=== PATIENT | female | born 1985 | race Two or more races ===

== ENCOUNTER 2017-04-17 10:54 | Emergency (ER) | payer OTHER ==
[2017-04-17 11:06] VITALS: TEMP 97.9
[2017-04-17] MEDS ORDERED: PROPARACAINE 0.5% 15 ML OPHT DROP ONE (11:13)
--- NOTE | 2017-04-17 11:24 | EDPHY ---
H & P Stated Complaint: PRESLEY with left facial involement for 4 day Time Seen by Provider: 04/17/17 11:00 HPI/ROS: CHIEF COMPLAINT: Pressure behind left eye and left ear HISTORY OF PRESENT ILLNESS: The patient is a 31-year-old healthy female who is 14 weeks who comes to the emergency department complaining of mild pressure behind her left eye and in her left ear. She had some pressure behind her right eye yesterday as well but it is now resolved. She denies headache. She denies jaw pain. She has not had a fever. She denies sore throat or runny nose. Is worse when she lays flat. No nausea vomiting or diarrhea. No chest pain or shortness of breath. No rash. No vision changes. No double vision. No photophobia. No history of migraines. No paralysis, no speech difficulties. She has had the symptoms for about 4 days. They are constant. REVIEW OF SYSTEMS: Constitutional: denies: chills, fever, recent illness, recent injury EENTM: See HPI Respiratory: denies: cough, shortness of breath Cardiac: denies: chest pain, irregular heart rate, lightheadedness, palpitations Gastrointestinal/Abdominal: denies: abdominal pain, diarrhea, nausea, vomiting, blood streaked stools Genitourinary: denies: dysuria, frequency, hematuria, pain Musculoskeletal: denies: joint pain, muscle pain Skin: denies: lesions, rash, jaundice, bruising Neurological: denies: headache, numbness, paresthesia, tingling, dizziness, weakness Hematologic/Lymphatic: denies: blood clots, easy bleeding, easy bruising Immunologic/allergic: denies: HIV/AIDS, transplant EXAM: GENERAL: Well-appearing, well-nourished and in no acute distress. HEAD: Atraumatic, normocephalic. EYES: Pupils equal round and reactive to light, extraocular movements intact, sclera anicteric, conjunctiva are normal. Pressure checked with Dre-Pen in the 20s bilaterally. Normal retinal exam ENT: TMs with mild bilateral effusions, no erythema, nares slightly congested , oropharynx clear without exudates. Moist mucous membranes. NECK: Normal range of motion, supple without lymphadenopathy or JVD. LUNGS: Breath sounds clear to auscultation bilaterally and equal. No wheezes rales or rhonchi. HEART: Regular rate and rhythm without murmurs, rubs or gallops. ABDOMEN: Soft, nontender, normoactive bowel sounds. No guarding, no rebound. No masses appreciated. BACK: No CVA tenderness, no spinal tenderness, step-offs or deformities EXTREMITIES: Normal range of motion, no pitting or edema. No clubbing or cyanosis. NEUROLOGICAL: Cranial nerves II through XII grossly intact. Normal speech, normal gait. 5/5 strength, normal movement in all extremities, normal sensation PSYCH: Normal mood, normal affect. SKIN: Warm, dry, normal turgor, no visible rashes or lesions. Source: Patient Exam Limitations: No limitations - Personal History LMP (Females 10-55): Current Tetanus/Diphtheria Vaccine: Yes Current Tetanus Diphtheria and Acellular Pertussis (TDAP): Yes Tetanus Vaccine Date: < 10 years - Medical/Surgical History Hx Asthma: No Hx Chronic Respiratory Disease: No Hx Diabetes: No Hx Cardiac Disease: No Hx Renal Disease: No Hx Cirrhosis: No Hx Alcoholism: No Hx HIV/AIDS: No Hx Splenectomy or Spleen Trauma: No Other PMH: 2 c-sections - Family History Significant Family History: No pertinent family hx - Social History Smoking Status: Never smoked Alcohol Use: Sober Drug Use: None Constitutional: Initial Vital Signs Temperature (C) 36.6 C 04/17/17 11:03 Heart Rate 93 04/17/17 11:03 Respiratory Rate 18 04/17/17 11:03 Blood Pressure 117/85 H 04/17/17 11:03 O2 Sat (%) 98 04/17/17 11:03 O2 Delivery Mode Room Air Allergies/Adverse Reactions: iodine Allergy (Verified 04/17/17 11:03) Home Medications: Medication Instructions Recorded NK [No Known Home Meds] 04/17/17 Medical Decision Making ED Course/Re-evaluation: The patient has signs of early sinusitis. She does not have a fever. She does not symptomatically have any nasal congestion or runny nose. She has had several sick contacts. We discussed other possibilities such as zoster and temporal arteritis and migraines etc. At this point we agreed to treat with Tylenol and Afrin and have her follow up with her OB. We discussed indications for returning here. She and her are happy with this plan. Differential Diagnosis: Partial list of the Differential diagnosis considered include but were not limited to; sinusitis, otitis media, zoster and although unlikely based on the history and physical exam, I also considered glaucoma, parotid duct stone, migraine, trigeminal neuralgia, Orantes's palsy, ocular migraine. I discussed these differential diagnoses and the plan with the patient as well as the usual and expected course. The patient understands that the diagnosis is provisional and that in medicine we are not always correct and that further workup is often warranted. Usual and customary warnings were given. All of the patient's questions were answered. The patient was instructed to return to the emergency department should the symptoms at all worsen or return, otherwise to followup with the physician as we discussed. - Data Points Medications Given: Discontinued Medications Proparacaine HCl (Alcaine 0.5%) 1 drops LEFTEYE ONCE ONE Stop: 04/17/17 11:37 Last Admin: 04/17/17 11:37 Dose: 1 drop Departure - Departure Disposition: Home, Routine, Self-Care Clinical Impression: Sinus congestion Condition: Fair Instructions: Sinusitis (ED) Additional Instructions: Take Afrin as discussed for symptomatic relief. If you develop a fever or symptoms worsen return here or to year OBGYN. Referrals: Aleyda Middleton MD [Medical Doctor] - As per Instructions
[2017-04-17 11:32] VITALS: BP 115/72; PULSE 88; RESP 16; O2SAT 96
[2017-04-17] MEDS ORDERED: PROPARACAINE 0.5% 15 ML OPHT DROP LEFTEYE ONE (11:36)
== END 2017-04-17 11:30 | disposition home or self-care (01) ==
LOC: CED 10:54
DX: O99.89 Other specified diseases and conditions complicating pregnancy, childbirth and the puerperium (principal); R09.81 Nasal congestion; Z3A.14 14 weeks gestation of pregnancy